=== PATIENT | female | born 1945 | race Caucasian/White ===

== ENCOUNTER → 2024-09-24 10:37 | Outpatient (BNVA) | payer MEDICARE, SELFPAY | PROVIDERS: PCP Internal Medicine; Referring Provider Internal Medicine; Visit Provider Podiatrist | DX: L60.0 Ingrowing nail (principal); M79.671 Pain in right foot; M79.672 Pain in left foot; I73.89 Other specified peripheral vascular diseases; I70.209 Unspecified atherosclerosis of native arteries of extremities, unspecified extremity; L97.519 Non-pressure chronic ulcer of other part of right foot with unspecified severity; L97.529 Non-pressure chronic ulcer of other part of left foot with unspecified severity; I73.00 Raynaud's syndrome without gangrene; R60.0 Localized edema; L65.9 Nonscarring hair loss, unspecified; R23.8 Other skin changes | CPT/HCPCS: 11719; 99204 ==